=== PATIENT | male | born 1955 | race Caucasian/White ===

== ENCOUNTER 2016-10-01 17:13 | Inpatient (IN) | payer MEDICAID, MEDICARE ==
[2016-10-01 17:13] VITALS: BMI 49.4
--- NOTE | 2016-10-01 18:32 | EDPRACDOC ---
ED Seizure HPI - General Information Chief Complaint: Seizure Stated Complaint: SEIZURE Time Seen by Provider: 10/01/16 18:25 Mode Of Arrival: Car Home Medications: Home Medications Amitriptyline HCl [Elavil] 300 mg PO HS 11/12/12 Amlodipine [Norvasc] 5 mg PO DAILY 11/12/12 Pravastatin Sodium 40 mg PO DAILY 11/12/12 Clopidogrel Bisulfate [Plavix] 75 mg PO DAILY 09/28/13 Calcium Carb/Mag Ox/Zinc Sulf [Jumjkbg-Ktummpiyg-Ssll Tablet] 1 tab PO DAILY 07/22 Fluticasone/Vilanterol [Breo Ellipta 200-25 Mcg INH] 1 each INH BID 02/15/16 Isosorbide Mononitrate [Isosorbide Mononitrate ER] 30 mg PO DAILY 02/15/16 Metformin HCl [Metformin HCl ER] 500 mg PO QHS 02/15/16 Ranolazine [Ranexa] 500 mg PO BID 02/15/16 Cephalexin 500 mg PO .BID X 7D 10/01/16 CloNIDine (Antihypertensive) [Catapres] 0.3 mg PO BID 10/01/16 Glimepiride [Amaryl] 2 mg PO DAILY 10/01/16 Nitroglycerin Sublingual Tab [NTG (NitroStat Sublingual Tab)] 0.4 mg SL Q5MX3 PRN 10/01/16 Potassium Chloride [Klor-Con M10] 10 meq PO DAILY 10/01/16 Allergies/Adverse Reactions: Allergies Allergy/AdvReac Type Severity Reaction Status Date / Time No Known Allergies Allergy Verified 10/01/16 17:15 - History of Present Illness Onset: EKG TECH HPI: SEIZURE, 1530. LASTED ABOUT 20 MINUTES. WITNESSED BY PT'S OLDER BROTHER. PT JUST HAD MEDS CHANGED TODAY. H/O FALL OUT OF BED THE OTHER DAY. LIVES BY HIMSELF, BROTHER LIVES CLOSE. PT HAS BEEN TAKING HIS MEDS. BROTHER REPORTS PT WAS CALLED BY OFFICE BECAUSE HIS RENAL FUNCTION WAS DIMINISHED. TOLD TO STOP LISINOPRIL AND 3 OTHER MEDS. ED Past Medical History - History Reviewed Yes Nurses notes reviewed and agree except as marked - Patient Medical History Neurological History: Reports: Cerebrovascular Accident, Seizures Cardiac History: Reports: Coronary Artery Disease, Hypertension, Cardiac Catheterization, Hypercholesterolemia Respiratory History: Reports: Asthma GI/ History: Reports: Kidney Stones Psychological History: Reports: Depression Systemic History: Reports: Diabetes. Denies: Cancer Surgical History: Reports: Cardiac Catheterization - Social Medical History Smoking Status: Never smoker EDM Review of Systems - Review of Systems ROS Negative Except as Marked: Yes All systems reviewed and were negative except as marked Constitutional: No Symptoms Reported Eyes: No Symptoms Reported Throat: No Symptoms Reported Respiratory: No Symptoms Reported Cardiovascular: No Symptoms Reported - Physical Exam Constitutional: Alert (Awake), No apparent distress Oriented to: Time, Person, Place Last recorded Vital Signs: Last Vital Signs Temp 98.4 F 10/01/16 17:15 Pulse 80 10/01/16 17:15 Resp 18 10/01/16 17:15 BP 211/116 H 10/01/16 17:15 Pulse Ox 94 10/01/16 17:15 Oxygen Pulse Oxygen Saturation 94 O2 Device Room Air Oxygen Flow Rate Fraction of Inspired Oxygen ( FIO2) - HEENT Head: Normal ( normocephalic) Eye Exam: Normal (PERRL, EOMI, Sclera white) Oropharynx: Membranes Dry Nose: No Symptoms Reported (septum midline) Neck: Normal (FROM, trachea at midline) - Respiratory/Cardiovascular Respiratory: Normal - CTA (BBS clear to auscultation without adventitious sounds ) Cardiovascular: Normal (RRR without murmur, gallop or rub) - GI Auscultation: Normal (NABS) Palpation: Normal (Soft,No rebound or guarding, non distended) Tenderness: Non tender Plaza's Sign: Negative - Musculoskeletal Back: Normal (Non-Tender) Extremities: Normal (Normal tone, Pulses 2+ No cyanosis or edema, FROM) - Integumentary Skin: Normal, Warm, Dry, Other (B/L SKIN SUPERFICIAL ULCERATIONS.) Lymphatics: Normal (no adenopathy) - Neurologic Memory Impaired: Normal Motor Function: Normal (Normal tone, Pulses 2+ No cyanosis or edema, FROM) Cranial Nerve: Normal (CN II-X11 intact sensation, strength 5/5) Cerebellar: Normal Mood Description: Normal Perception: Normal - Results 10/01/16 18:48 10/01/16 18:48 - EKG EKG #1 EKG Time: 18:43 -: Yes EKG interpreted by me Rate: bpm: 61 [place]: Normal Rhythm: NSR ST: Normal Comments: NORMAL EKG - Additional Information . - Departure Yes I personally saw and evaluated the patient. Disposition: Admit IP To This Hospital Condition: Stable Final Diagnosis: Seizure, Dehydration, Hypertensive urgency, malignant Acute renal failure Qualifiers: Acute renal failure type: unspecified Qualified Code(s): N17.9 - Acute kidney failure, unspecified Instructions: Chronic Hypertension (ED) Prescriptions: No Action Amitriptyline HCl [Elavil] 300 mg PO HS Pravastatin Sodium 40 mg PO DAILY Amlodipine [Norvasc] 5 mg PO DAILY Clopidogrel Bisulfate [Plavix] 75 mg PO DAILY Metformin HCl [Metformin HCl ER] 500 mg PO QHS Isosorbide Mononitrate [Isosorbide Mononitrate ER] 30 mg PO DAILY Calcium Carb/Mag Ox/Zinc Sulf [Ptnvnor-Rdqmnqpkx-Ytdv Tablet] 1 tab PO DAILY Ranolazine [Ranexa] 500 mg PO BID Fluticasone/Vilanterol [Breo Ellipta 200-25 Mcg INH] 1 each INH BID Potassium Chloride [Klor-Con M10] 10 meq PO DAILY CloNIDine (Antihypertensive) [Catapres] 0.3 mg PO BID Glimepiride [Amaryl] 2 mg PO DAILY Cephalexin 500 mg PO .BID X 7D Nitroglycerin Sublingual Tab [NTG (NitroStat Sublingual Tab)] 0.4 mg SL Q5MX3 PRN PRN Reason: Chest Pain Or Discomfort Decision to Admit Time: 22:11 Decision to admit date: 10/01/16 Decision to admit: from ED - Physician Consulted Hospitalist Time Called: 22:11 Provider Called: Kalpesh Poole Time Assistant Corporate Controller Returned Call: 22:11
[2016-10-01 19:05] LABS: AUTOMATED BASOPHIL 0.4 % (0-2); AUTOMATED EOSINOPHIL 2.1 % (0-5); AUTOMATED LYMPH 14.5 % (17-44); AUTOMATED MONOCYTE 7.2 % (3-10); AUTOMATED NEUTROPHIL 75.8 % (45-76); MPV 7.7 fL (7.4-10.4)
[2016-10-01 19:22] LABS: BLOOD UREA NITROGEN 46 MG/DL (9-20); CALC CORRECTED 8.7 MG/DL (8.4-10.2); CALCIUM 8.5 MG/DL (8.4-10.2); CALCULATED OSMOLALITY 290 MOs/Kg (270-290); CHLORIDE 104 mEq/L (98-107); GLUCOSE 118 MG/DL (70-99); SODIUM LEVEL 144 mEq/L (137-146); TOTAL PROTEIN 6.9 G/DL (6.3-8.2)
[2016-10-01 20:03] LABS: LEUKOCYTES/URINE NEG (NEGATIVE); NITRITE/URINE NEG (NEGATIVE); URINE OCCULT BLOOD NEG (NEG/TRACE); WBC/URINE 0-2 (0-2)
[2016-10-01] MEDS ORDERED: NS 1,000 ML IV ONE ×2 (20:09→22:23)
--- NOTE | 2016-10-01 21:19 | DIRPT ---
CLINICAL DATA: Seizure today. Initial encounter. EXAM: CT HEAD WITHOUT CONTRAST TECHNIQUE: Contiguous axial images were obtained from the base of the skull through the vertex without intravenous contrast. COMPARISON: Head CT scan 09/28/2013. FINDINGS: There is some chronic microvascular change. No evidence of acute intracranial abnormality including hemorrhage, infarct, mass lesion, mass effect, midline shift or abnormal extra axial fluid is seen. No hydrocephalus or pneumocephalus. The calvarium is intact. IMPRESSION: No acute abnormality. Mild chronic microvascular ischemic change. Electronically Signed By: Adal Childs M.D. On: 10/01/2016 21:17
[2016-10-01] MEDS ORDERED: ACETAMINOPHEN 325 MG SUPP PR PRN ×2 (21:27→23:39)
[2016-10-01] MEDS ORDERED: TUSSIONEX 5 ML ORAL SYRINGE PO PRN ×2 (21:27→23:41)
[2016-10-01] MEDS ORDERED: ACETAMINOPHEN 325 MG/TAB TABLET PO PRN ×2 (21:27→23:39)
[2016-10-01] MEDS ORDERED: BENZONATATE 100 MG PERLES PO PRN ×2 (21:27→23:39)
--- NOTE | 2016-10-01 21:34 | DIRPT ---
CLINICAL DATA: Acute renal failure. EXAM: RENAL / URINARY TRACT ULTRASOUND COMPLETE COMPARISON: None. FINDINGS: Right Kidney: Length: 12.6 cm. Echogenicity within normal limits. Mild right hydronephrosis is noted. No mass is seen. Left Kidney: Length: 13.1 cm. Echogenicity within normal limits. Mild left hydronephrosis is noted. No mass is seen. Bladder: Appears normal for degree of bladder distention. IMPRESSION: Mild bilateral hydronephrosis. Electronically Signed By: Jerald Horn Jr, M.D. On: 10/01/2016 21:31
[2016-10-01] MEDS ORDERED: PROMETHAZINE 25 MG/ML VIAL IV PRN ×3 (22:17→23:40)
[2016-10-01] MEDS ORDERED: BISACODYL 10 MG SUPP PR PRN ×3 (22:17→23:39)
[2016-10-01] MEDS ORDERED: SENNA CONCENTRATE TAB PO PRN ×2 (22:17→23:40)
[2016-10-01] MEDS ORDERED: ONDANSETRON HCL 4 MG/2 ML VIAL IV PRN ×2 (22:17→23:40)
[2016-10-01] MEDS ORDERED: hydrALAZINE 20 MG/ML VIAL IV ONE (22:22)
--- NOTE | 2016-10-01 22:23 | HISTPHYS ---
- Chief Complaint Seizure witnessed by brother who brought him end and found to have acute renal failure. - History of Present Illness Patient is an interesting 60-year-old white male who lives alone and was in his brothers truck this afternoon when he had a seizure lasting 3-5 minutes. His brother tells me he has had seizures since 1991. He was in Dr. Gould office today and was told to stop his Lasix and lisinopril due to an elevation in his creatinine. Upon arrival emergency room after the seizure he was found have an extremely elevated blood pressure in the 230s systolicly. Also here he was noted to have a creatinine 4.1 which was last drawn at [facility] May 2016 and found to be 1.3. As far as a seizure goes the last 1 he had was about a year ago. I was called by Dr. Taylor to evaluate him in given these multiple issues I decided to stick him in the hospital to better control as blood pressure and monitor his renal function. He also has a history coronary artery disease status post stenting and sees Dr. Sousa for this. Ten years ago he had a stroke affecting his right side but strength has returned and issues a bound with his hypertension. Diabetes mellitus also plagues him. - Medical History Cardiac History: Reports: Coronary Artery Disease, Hypertension, Heart Attack ( Status post stenting), Cardiac Catheterization, Hypercholesterolemia Respiratory History: Reports: Asthma GI/ History: Reports: Kidney Stones Musculoskeletal History: Reports: No Significant History Systemic History: Reports: Diabetes. Denies: Cancer Neurological History: Reports: Cerebrovascular Accident, Seizures Psychological History: Reports: Depression - Surgical History Reports: Cardiac Catheterization (Status post coronary artery) - Medictions/Allergies Allergies No Known Allergies Allergy (Verified 10/01/16 17:15) Current Medication List: Reviewed Home Medications Amitriptyline HCl [Elavil] 300 mg PO HS 11/12/12 Amlodipine [Norvasc] 5 mg PO DAILY 11/12/12 Pravastatin Sodium 40 mg PO DAILY 11/12/12 Clopidogrel Bisulfate [Plavix] 75 mg PO DAILY 09/28/13 Calcium Carb/Mag Ox/Zinc Sulf [Nhynpld-Iodwebqcs-Rtko Tablet] 1 tab PO DAILY 07/22 Fluticasone/Vilanterol [Breo Ellipta 200-25 Mcg INH] 1 each INH BID 02/15/16 Isosorbide Mononitrate [Isosorbide Mononitrate ER] 30 mg PO DAILY 02/15/16 Metformin HCl [Metformin HCl ER] 500 mg PO QHS 02/15/16 Ranolazine [Ranexa] 500 mg PO BID 02/15/16 Cephalexin 500 mg PO .BID X 7D 10/01/16 CloNIDine (Antihypertensive) [Catapres] 0.3 mg PO BID 10/01/16 Glimepiride [Amaryl] 2 mg PO DAILY 10/01/16 Nitroglycerin Sublingual Tab [NTG (NitroStat Sublingual Tab)] 0.4 mg SL Q5MX3 PRN 10/01/16 Potassium Chloride [Klor-Con M10] 10 meq PO DAILY 10/01/16 - Family History Reports: Hypertension (Both parents), Stroke (Mother), Cardiac Disorders (Follow ), Renal Disease (Father) - Social History Travel Outside of [place] in the Last 3 Months?: No Lives: Alone Smoking Status: Never smoker Social History: Denies: Alcohol Use, Substance Use Disorder - Review of Systems Constitutional: No Symptoms Reported (No Fever, chills, wt loss/gain, diaphoresis,fatigue/malaise.) Eyes: No Symptoms Reported (No blurry vision, visual changes, eye pain, or eye redness.) Ears: No Symptoms Reported (No ear pain or discharge) Nose: No Symptoms Reported (No nasal discharge/congestion or bleeding) Mouth: No Symptoms Reported (No oropharyngeal lesions or erythema) Throat/Neck: No Symptoms Reported (No throat pain or swelling.No oropharyngeal lesions or erythema.) Respiratory: No Symptoms Reported (No cough, wheezing, or shortness of breath.) Cardiovascular: No Symptoms Reported (No chest pain or palpitations.) Gastrointestinal: No Symptoms Reported (No abdominal pain, nausea, vomiting, diarrhea, constipation, or bloody stool.) Genitourinary: No Symptoms Reported (No dysuria or hematuria.) Neurological: Seizure Musculoskeletal:: No Symptoms Reported Integumentary: No Symptoms Reported (no rashes or lesions) Allergic/Immunologic: No Symptoms Reported (no rashes or lesions) Hematologic: No Symptoms Reported (No chronic anemia, bleeding, or easy bruising.), Other (Lymphatics- no lymph node swelling or pain.) Endocrine: Diabetes Psychiatric: No Symptoms Reported (Fully oriented, with normal and appropriate affect.) - Physical Exam Vital Signs: Initial Vitals Temperature 98.4 F 10/01/16 17:15 Pulse Rate 80 10/01/16 17:15 Respiratory Rate 18 10/01/16 17:15 Blood Pressure 211/116 H 10/01/16 17:15 Pulse Oxygen Saturation 94 10/01/16 17:15 Constitutional: Alert (Awake, Fully oriented. Normal and appropriate affect.Well appearing. Well nourished.), No apparent distress Oriented to: Time, Person, Place - HEENT Head: Normal (normocephalic, atraumatic.), Other (No cervical lymphadenopathy. No supraclavicular lymphadenopathy. Neck: No palpable mass, supple , trachea midline.) Eye: Normal (pupils equal, reactive to light, and round; EOMI, Sclera white) Oropharynx: Normal (Pharynx: Moist without exudate,Gums-no swelling, No oropharyngeal lesions or erythema, Mucous membranes are dry.) Tympanic Membrane: Normal (no discharge) ENT EAC: Normal (No oropharyngeal lesions or erythema. Mucous membranes are dry. ) TMJ: Normal Nose: No Symptoms Reported (septum midline, Nares patent, without discharge or bleeding.) Respiratory: Normal - CTA (Clear to auscultation bilaterally. No wheezing, rales , rhonchi. Chest wall movements are symmetric. No use of accessory muscles to breathe.) Cardiovascular: Normal (RRR , Normal S1, S2. No murmurs, rubs, or gallops. PMI non-displaced. Carotids: no carotid bruits. No bradycardia or tachycardia. DP pulses 2+ bilaterally.) - GI Auscultation: Normal (normal active sounds) Palpation: Normal (Soft,non distended,nontender. No hepatosplenomegaly.) Tenderness: Non tender (No rebound or guarding) Plaza's Sign: Negative - Musculoskeletal Back: Normal (Non-Tender) Extremities: Normal (Normal tone, DP pulses 2+ bilaterally, No cyanosis or edema bilaterally, FROM bilaterally.) Spine: non-tender - Integumentary Skin: Normal (Clean, dry, and intact. No rashes. No lesions.) Lymphatics: Normal (No cervical lymphadenopathy. No supraclavicular lymphadenopathy.) - Neurologic Memory Impaired: Normal Motor Function: Normal (Motor 5/5 throughout.Normal tone, Pulses 2+ No cyanosis or edema, FROM) Cranial Nerve: Normal (CN II-XII intact sensation, strength 5/5) Cerebellar: Normal (Babinski: toes downgoing bilaterally. Intact Finger to nose. Sensory grossly intact to light touch. Intact rapid alternating movements bilaterally. No pronator drift.) Mood Description: Normal (Fully oriented. Normal and appropriate affect.) Thought: Coherent Perception: Normal (Normal and appropriate affect.) - Focused CV Perfusion Exam Vital Signs: Last Vital Signs Temp 98.4 F 10/01/16 17:15 Pulse 59 L 10/01/16 22:00 Resp 20 10/01/16 22:00 BP 221/108 H 10/01/16 22:00 Pulse Ox 96 10/01/16 22:00 - Lab Results 10/01/16 18:48 10/01/16 18:48 Laboratory Results - last 24 hr 10/01/16 10/01/16 10/01/16 18:48 18:48 19:19 WBC 14.8 H RBC 3.64 L Hgb 10.7 L Hct 32.1 L MCV 88 MCH 29.4 MCHC 33.4 RDW 13.6 Plt Count 255 MPV 7.7 Neut % (Auto) 75.8 Lymph % (Auto) 14.5 L Stevens % (Auto) 7.2 Eos % (Auto) 2.1 Baso % (Auto) 0.4 Absolute Neuts (auto) 11.10 H Absolute Lymphs (auto) 2.07 Sodium 144 Potassium 3.3 L Chloride 104 Carbon Dioxide 29 Anion Gap 14 BUN 46 H Creatinine 4.10 H Estimated GFR (MDRD) 15 L Glucose 118 H Calculated Osmolality 290 Calcium 8.5 Corrected Calcium 8.7 Total Bilirubin 0.5 AST 24 ALT 31 Alkaline Phosphatase 85 Total Protein 6.9 Albumin 3.8 Urine Color Yellow Urine Clarity Clear Urine pH 6.0 Ur Specific [place] 1.010 Urine Protein Neg Urine Glucose (UA) Neg Urine Ketones Neg Urine Occult Blood Neg Urine Nitrite Neg Urine Bilirubin Neg Urine Urobilinogen <2.0 Ur Leukocyte Esterase Neg Urine RBC 2-5 H Urine WBC 0-2 Ur Epithelial Cells 1+ Urine Mucus Occ - Diagnostic Findings Renal ultrasound shows mild bilateral hydronephrosis. - Assessment (1) Coronary artery disease I25.10 - ATHSCL HEART DISEASE OF [place] CORONARY ARTERY W/O ANG PCTRS Acute Present on Admission: Yes Qualifiers: Coronary Disease-Associated Artery/Lesion type: [place] artery [place] vs. transplanted heart: [place] heart Associated angina: without angina Qualified Code(s): I25.10 - Atherosclerotic heart disease of [place] coronary artery without angina pectoris Continuation of previous medications will be necessary except for the lisinopril and Lasix. (2) Acute renal failure N17.9 - ACUTE KIDNEY FAILURE, UNSPECIFIED Acute Present on Admission: Yes Qualifiers: Acute renal failure type: with acute tubular necrosis Qualified Code(s): N17.0 - Acute kidney failure with tubular necrosis Concerned that dehydration is playing a role with and will see how it improves with rehydration. Also combination of loop diuretic and NOEMI-inhibitor is contributing to this as well. Patient's brother states that he was instructed to stop those four medications today including gabapentin and lisinopril metformin and Lasix. (3) Hypertensive urgency, malignant I16.0 - HYPERTENSIVE URGENCY Acute Present on Admission: Yes Reinstitution of Norvasc and Catapres is in order but will have to avoid angiotensin modulating drugs. P.r.n. hydralazine and labetalol are ordered. (4) Seizure R56.9 - UNSPECIFIED CONVULSIONS Acute Present on Admission: Yes Last seizure year ago before today's. Do not feel we need to adjust his medication this point time. (5) Non-insulin dependent type 2 diabetes mellitus E11.9 - TYPE 2 DIABETES MELLITUS WITHOUT COMPLICATIONS Chronic Present on Admission: Yes Sliding scale insulin therapy is ordered. Glycohemoglobin and microalbumin ordered. Case Care Discussed with: Patient, Family, Nursing Staff Critical Care: No Code: 61302
[2016-10-01] MEDS ORDERED: ENOXAPARIN 40 MG/0.4 ML PFS SQ SCH (22:30)
[2016-10-01] MEDS ORDERED: Vaccine Screening Complete SCH (23:00)
[2016-10-02] MEDS: ENOXAPARIN 40 MG/0.4 ML PFS SQ SCH ×2 (00:51→21:03)
[2016-10-02] MEDS ORDERED: hydrALAZINE 20 MG/ML VIAL IV PRN ×2 (02:45→03:00)
[2016-10-02] MEDS ORDERED: NITROGLYCERINE 0.4 MG TAB SL PRN (03:39)
[2016-10-02] MEDS ORDERED: DEXTROSE 25 GM/50 ML PFS IV PRN (03:51)
[2016-10-02] MEDS ORDERED: GLUCOSE (ORAL GEL) 15 GM TUBE PO PRN (03:51)
[2016-10-02] MEDS ORDERED: GLUCAGON 1 MG VIAL SQ PRN (03:51)
[2016-10-02] MEDS ORDERED: LABETALOL 20 MG/4 ML SYRINGE IV PRN (03:57)
[2016-10-02] MEDS: AMLODIPINE 10 MG TAB PO SCH ×2 (04:22→09:31)
[2016-10-02] MEDS: REGULAR INSULIN 100 UNITS/ML - 3 ML VIAL SQ SCH ×2 (06:06→17:21)
[2016-10-02] MEDS ORDERED: GLIMEPIRIDE 2 MG TAB PO SCH (07:00)
[2016-10-02] MEDS ORDERED: POTASSIUM CHLORIDE 20 MEQ TAB PO ONE (07:46)
[2016-10-02] MEDS: ALBUTEROL 0.083% 3 ML NEB NEB SCH ×3 (08:54→19:29)
[2016-10-02] MEDS: BUDESONIDE 0.5 MG NEB NEB SCH ×2 (08:57→19:33)
[2016-10-02] MEDS ORDERED: CALCIUM CARB PO SCH (09:00)
[2016-10-02] MEDS ORDERED: MAG OX PO SCH (09:00)
[2016-10-02] MEDS ORDERED: ZINC SULF PO SCH (09:00)
[2016-10-02] MEDS ORDERED: [UNRECOGNIZED DRUG - OTHER] INH SCH (09:00)
[2016-10-02] MEDS ORDERED: [UNRECOGNIZED DRUG - OTHER] PO SCH (09:00)
[2016-10-02] MEDS: CLOPIDOGREL 75 MG TAB PO SCH (09:31)
[2016-10-02] MEDS: PRAVASTATIN 40 MG TABLET PO SCH (09:31)
[2016-10-02] MEDS: RANOLAZINE 500 MG EXT RELEASE TAB PO SCH ×2 (09:32→21:04)
[2016-10-02] MEDS: ISOSORBIDE MONONITRATE 30 MG TAB PO SCH (09:33)
[2016-10-02] MEDS: POTASSIUM CHLORIDE 10 MEQ TABLET PO SCH (11:45)
--- NOTE | 2016-10-02 17:16 | GENMEDPROG ---
Subjective Note: Patient in chair responsive follows commands. Denies any headaches blurring or double vision. Reports no chest pain PND orthopnea. Denies and difficulties breathing cough or phlegm production. Notes Reviewed: Yes Events from last night noted and discussed with Clinical Staff Current Medication List: Reviewed Currently: Reports: RODRIGUEZ, Sputum, Constipation, Reflux Sx DVT Prophylaxis: Yes - Physical Examination Vital Signs and I&O: Last Vital Signs Temp 97.4 F L 10/02/16 13:45 Pulse 75 10/02/16 13:45 Resp 18 10/02/16 13:45 BP 171/89 10/02/16 13:45 Pulse Ox 94 10/02/16 13:45 Oxygen Pulse Oxygen Saturation 94 O2 Device Room Air Oxygen Flow Rate Fraction of Inspired Oxygen ( FIO2) Intake & Output 09/29/16 09/30/16 10/01/16 10/02/16 23:59 23:59 23:59 23:59 Intake Total 600 1812 Output Total 1425 Balance 600 387 Patient's weight 129.637 kg 130.907 kg General: Alert, Oriented x3, Cooperative, No acute distress HEENT: Normal, PERRLA, EOMI, Anicteric Sclera Neck: Non-tender, Normal inspection, Limited range of motion Lymphatics: Normal (No cervical lymphadenopathy. No supraclavicular lymphadenopathy.) Respiratory: Normal - CTA (Clear to auscultation bilaterally. No wheezing, rales , rhonchi. Chest wall movements are symmetric. No use of accessory muscles to breathe.), Diminished, Rhonchi Cardiovascular: Regular rate, Normal S1, Normal S2 GI: Normal bowel sounds, Soft, Non tender, No hepatospenomegaly, No masses, Obese Extremities/Musculoskeletal: Edema, Cyanosis, DJD Skin: Warm,Dry and Intact, No rashes, No significant lesion Neurological: Normal speech, Cranial nerves 3-12 NL Psych/Mental Status: Anxious Allergies NOEMI Inhibitors Adverse Reaction (Severe, Verified 10/01/16 22:24) See Comments Acute renal failure 10/01/16 18:48 10/01/16 18:48 Last Vital Signs Temp 97.4 F L 10/02/16 13:45 Pulse 75 10/02/16 13:45 Resp 18 10/02/16 13:45 BP 171/89 10/02/16 13:45 Pulse Ox 94 10/02/16 13:45 - Assessment (1) Acute renal failure Acute N17.9 - ACUTE KIDNEY FAILURE, UNSPECIFIED Qualifiers: Acute renal failure type: with acute tubular necrosis Qualified Code(s): N17.0 - Acute kidney failure with tubular necrosis Comment/Plan: Monitor daily BMP. Avoid any nephrotoxins. Continue IV hydration. (2) Hypertensive urgency, malignant Acute I16.0 - HYPERTENSIVE URGENCY Comment/Plan: Up titrate meds to keep SBP around 140. (3) Dehydration Acute E86.0 - DEHYDRATION (4) Coronary artery disease Acute I25.10 - ATHSCL HEART DISEASE OF [place] CORONARY ARTERY W/O ANG PCTRS Qualifiers: Coronary Disease-Associated Artery/Lesion type: [place] artery [place] vs. transplanted heart: [place] heart Associated angina: without angina Qualified Code(s): I25.10 - Atherosclerotic heart disease of [place] coronary artery without angina pectoris Comment/Plan: Stable on meds (5) Non-insulin dependent type 2 diabetes mellitus Chronic E11.9 - TYPE 2 DIABETES MELLITUS WITHOUT COMPLICATIONS Comment/Plan : Sliding scale insulin therapy is ordered. Glycohemoglobin and microalbumin ordered. (6) Anemia Acute D64.9 - ANEMIA, UNSPECIFIED Qualifiers: Anemia type: unspecified type Iron deficiency anemia type: I Vitamin B12 deficiency anemia type: V Folate deficiency anemia type: F Bone marrow failure anemia type: B Hemolytic anemia type: H Other causes of anemia: O Qualified Code(s): D64.9 - Anemia, unspecified Comment/Plan: Overall stable, monitor counts Case Care Discussed with: Patient, Nursing Staff, Towel Inspector Education/Counseling Given To: Patient Education/Counseling Given Regarding: Diagnosis, Treatment, Prognosis, Follow Up Total Time: 45 min . Critical Care: No Code: 79681 (12+)
[2016-10-02] MEDS: NS 1,000 ML IV SCH (17:19)
[2016-10-02] MEDS: AMITRIPTYLINE 50 MG TAB PO SCH (21:04)
[2016-10-02] MEDS: hydrALAZINE 20 MG/ML VIAL IV PRN (21:34)
[2016-10-03] MEDS: ALBUTEROL 0.083% 3 ML NEB NEB SCH ×3 (01:36→13:53)
[2016-10-03] MEDS: REGULAR INSULIN 100 UNITS/ML - 3 ML VIAL SQ SCH ×2 (05:58→16:39)
[2016-10-03] MEDS: NS 1,000 ML IV SCH ×3 (06:14→16:59)
[2016-10-03] MEDS: hydrALAZINE 20 MG/ML VIAL IV PRN (06:27)
[2016-10-03 07:03] LABS: BLOOD UREA NITROGEN 52 MG/DL (9-20); CALCIUM 8.8 MG/DL (8.4-10.2); CALCULATED OSMOLALITY 296 MOs/Kg (270-290); CHLORIDE 109 mEq/L (98-107); GLUCOSE 67 MG/DL (70-99); SODIUM LEVEL 148 mEq/L (137-146)
[2016-10-03] MEDS: ISOSORBIDE MONONITRATE 30 MG TAB PO SCH (07:44)
[2016-10-03] MEDS: PRAVASTATIN 40 MG TABLET PO SCH (07:45)
[2016-10-03] MEDS: CLOPIDOGREL 75 MG TAB PO SCH (07:45)
[2016-10-03] MEDS: AMLODIPINE 10 MG TAB PO SCH (07:45)
[2016-10-03] MEDS: RANOLAZINE 500 MG EXT RELEASE TAB PO SCH ×2 (07:45→20:39)
[2016-10-03] MEDS: BUDESONIDE 0.5 MG NEB NEB SCH ×2 (08:42→19:31)
[2016-10-03] MEDS: POTASSIUM CHLORIDE 10 MEQ TABLET PO SCH ×2 (12:41→14:03)
--- NOTE | 2016-10-03 15:38 | GENMEDPROG ---
Subjective Note: Patient in bed responsive follows commands. Denies and difficulties breathing PND orthopnea reports no palpitations syncope or near syncope. Tolerating diet. Notes Reviewed: Yes Events from last night noted and discussed with Clinical Staff Current Medication List: Reviewed Currently: Reports: RODRIGUEZ, Sputum, Constipation, Reflux Sx DVT Prophylaxis: Yes - Physical Examination Vital Signs and I&O: Last Vital Signs Temp 98.1 F 10/03/16 13:57 Pulse 81 10/03/16 13:57 Resp 20 10/03/16 13:57 BP 151/76 10/03/16 13:57 Pulse Ox 96 10/03/16 13:57 Oxygen Pulse Oxygen Saturation 96 O2 Device Room Air Oxygen Flow Rate Fraction of Inspired Oxygen ( FIO2) Intake & Output 09/30/16 10/01/16 10/02/16 10/03/16 23:59 23:59 23:59 23:59 Intake Total 600 2132 600 Output Total 1625 1500 Balance 600 507 -900 Patient's weight 129.637 kg 130.907 kg 131.57 kg General: Alert, Oriented x3, Cooperative, No acute distress HEENT: Normal, PERRLA, EOMI, Anicteric Sclera Neck: Non-tender, Normal inspection, Limited range of motion Lymphatics: Normal (No cervical lymphadenopathy. No supraclavicular lymphadenopathy.) Respiratory: Normal - CTA (Clear to auscultation bilaterally. No wheezing, rales , rhonchi. Chest wall movements are symmetric. No use of accessory muscles to breathe.), Diminished, Rhonchi Cardiovascular: Regular rate, Normal S1, Normal S2 GI: Normal bowel sounds, Soft, Non tender, No hepatospenomegaly, No masses, Obese Extremities/Musculoskeletal: Edema, Cyanosis, DJD Skin: Warm,Dry and Intact, No rashes, No significant lesion Neurological: Normal speech, Cranial nerves 3-12 NL Psych/Mental Status: Anxious Lab/DI/Studies Reviewed: 10/03/16 05:53 10/03/16 05:53 Abnormal Lab Results 10/02/16 10/03/16 10/03/16 21:18 05:38 05:53 Hgb Hct Sodium 148 H Potassium 3.3 L Chloride 109 H Anion Gap 17 H BUN 52 H Creatinine 5.20 H Estimated GFR (MDRD) 11 L Glucose 67 L POC Capillary Glucose 108 H 65 L Calculated Osmolality 296 H 10/03/16 10/03/16 10/03/16 05:53 06:21 11:14 Hgb 11.7 L Hct 35.3 L Sodium Potassium Chloride Anion Gap BUN Creatinine Estimated GFR (MDRD) Glucose POC Capillary Glucose 105 H 125 H Calculated Osmolality - Assessment (1) Acute renal failure Acute N17.9 - ACUTE KIDNEY FAILURE, UNSPECIFIED Qualifiers: Acute renal failure type: with acute tubular necrosis Qualified Code(s): N17.0 - Acute kidney failure with tubular necrosis Comment/Plan: Monitor daily BMP. Avoid any nephrotoxins. Continue IV hydration. Kidney function worse today. Case discussed with Dr. Caro. Further workup will be undertaken, continue current care monitor kidney function (2) Hypertensive urgency, malignant Acute I16.0 - HYPERTENSIVE URGENCY Comment/Plan: Up titrate meds to keep SBP around 140. (3) Dehydration Acute E86.0 - DEHYDRATION Comment/Plan: Continue IV normal saline at the rate of 100 cc an hour (4) Coronary artery disease Acute I25.10 - ATHSCL HEART DISEASE OF [place] CORONARY ARTERY W/O ANG PCTRS Qualifiers: Coronary Disease-Associated Artery/Lesion type: [place] artery [place] vs. transplanted heart: [place] heart Associated angina: without angina Qualified Code(s): I25.10 - Atherosclerotic heart disease of [place] coronary artery without angina pectoris Comment/Plan: Stable on meds (5) Non-insulin dependent type 2 diabetes mellitus Chronic E11.9 - TYPE 2 DIABETES MELLITUS WITHOUT COMPLICATIONS Comment/Plan : Sliding scale insulin therapy is ordered. Glycohemoglobin and microalbumin ordered. Off oral agents due to renal failure (6) Anemia Acute D64.9 - ANEMIA, UNSPECIFIED Qualifiers: Anemia type: unspecified type Iron deficiency anemia type: I Vitamin B12 deficiency anemia type: V Folate deficiency anemia type: F Bone marrow failure anemia type: B Hemolytic anemia type: H Other causes of anemia: O Qualified Code(s): D64.9 - Anemia, unspecified Comment/Plan: Overall stable, monitor counts (7) Hypokalemia Acute E87.6 - HYPOKALEMIA Comment/Plan: Replace and monitor Case Care Discussed with: Patient, Consultants, Nursing Staff Education/Counseling Given To: Patient Education/Counseling Given Regarding: Diagnosis, Treatment, Prognosis, Follow Up Total Time: 45 min . Critical Care: No Code: 33877 (12+)
[2016-10-03] MEDS ORDERED: ALBUTEROL 0.083% 3 ML NEB NEB PRN (16:33)
[2016-10-03] MEDS: ENOXAPARIN 40 MG/0.4 ML PFS SQ SCH (17:01)
[2016-10-03] MEDS: AMITRIPTYLINE 50 MG TAB PO SCH (20:38)
[2016-10-04] MEDS: NS 1,000 ML IV SCH ×3 (03:31→22:54)
[2016-10-04] MEDS: ISOSORBIDE MONONITRATE 60 MG TAB PO SCH (05:07)
[2016-10-04 06:58] LABS: BLOOD UREA NITROGEN 47 MG/DL (9-20); CALCIUM 8.8 MG/DL (8.4-10.2); CALCULATED OSMOLALITY 301 MOs/Kg (270-290); CHLORIDE 113 mEq/L (98-107); GLUCOSE 81 MG/DL (70-99); SODIUM LEVEL 151 mEq/L (137-146)
[2016-10-04] MEDS: REGULAR INSULIN 100 UNITS/ML - 3 ML VIAL SQ SCH ×2 (07:09→18:15)
[2016-10-04] MEDS: PRAVASTATIN 40 MG TABLET PO SCH (08:28)
[2016-10-04] MEDS: AMLODIPINE 10 MG TAB PO SCH (08:28)
[2016-10-04] MEDS: CLOPIDOGREL 75 MG TAB PO SCH (08:28)
[2016-10-04] MEDS: RANOLAZINE 500 MG EXT RELEASE TAB PO SCH ×2 (08:29→20:56)
[2016-10-04] MEDS: BUDESONIDE 0.5 MG NEB NEB SCH ×2 (08:50→19:26)
[2016-10-04] MEDS: POTASSIUM CHLORIDE 10 MEQ TABLET PO SCH (11:25)
--- NOTE | 2016-10-04 16:11 | GENMEDPROG ---
Subjective Note: Patient in bed responsive follows commands. Denies and difficulties breathing cough phlegm production, reports no PND or orthopnea.. Lane in place draining clear urine. P.o. intake fair no hypoglycemia Notes Reviewed: Yes Events from last night noted and discussed with Clinical Staff Current Medication List: Reviewed Currently: Reports: RODRIGUEZ, Sputum, Constipation, Reflux Sx DVT Prophylaxis: Yes - Physical Examination Vital Signs and I&O: Last Vital Signs Temp 98.8 F 10/04/16 13:51 Pulse 85 10/04/16 13:51 Resp 20 10/04/16 13:51 BP 142/72 10/04/16 13:51 Pulse Ox 95 10/04/16 13:51 Oxygen Pulse Oxygen Saturation 95 O2 Device Room Air Oxygen Flow Rate Fraction of Inspired Oxygen ( FIO2) Intake & Output 10/01/16 10/02/16 10/03/16 10/04/16 23:59 23:59 23:59 23:59 Intake Total 600 2132 2166 1743 Output Total 1625 4150 3800 Balance 600 Patient's weight 129.637 kg 130.907 kg 131.57 kg 131.712 kg General: Alert, Oriented x3, Cooperative, No acute distress HEENT: Normal, PERRLA, EOMI, Anicteric Sclera Neck: Non-tender, Normal inspection, Limited range of motion Lymphatics: Normal (No cervical lymphadenopathy. No supraclavicular lymphadenopathy.) Respiratory: Normal - CTA (Clear to auscultation bilaterally. No wheezing, rales , rhonchi. Chest wall movements are symmetric. No use of accessory muscles to breathe.), Diminished, Rhonchi Cardiovascular: Regular rate, Normal S1, Normal S2 GI: Normal bowel sounds, Soft, Non tender, No hepatospenomegaly, No masses, Obese Extremities/Musculoskeletal: Edema, Cyanosis, DJD Skin: Warm,Dry and Intact, No rashes, No significant lesion Neurological: Normal speech, Cranial nerves 3-12 NL Psych/Mental Status: Anxious Lab/DI/Studies Reviewed: Last Vital Signs Temp 98.8 F 10/04/16 13:51 Pulse 85 10/04/16 13:51 Resp 20 10/04/16 13:51 BP 142/72 10/04/16 13:51 Pulse Ox 95 10/04/16 13:51 10/03/16 05:53 10/04/16 05:40 - Assessment (1) Acute renal failure Acute N17.9 - ACUTE KIDNEY FAILURE, UNSPECIFIED Qualifiers: Acute renal failure type: with acute tubular necrosis Qualified Code(s): N17.0 - Acute kidney failure with tubular necrosis Comment/Plan: Continue monitoring with daily BMP. Avoid any nephrotoxins. Consult Nephrology on Wednesday morning (2) Hypertensive urgency, malignant Acute I16.0 - HYPERTENSIVE URGENCY Comment/Plan: BP still fluctuates but overall under much better control. Continue multiple agents (3) Dehydration Acute E86.0 - DEHYDRATION Comment/Plan: Continue IV normal saline at the rate of 100 cc an hour (4) Coronary artery disease Acute I25.10 - ATHSCL HEART DISEASE OF [place] CORONARY ARTERY W/O ANG PCTRS Qualifiers: Coronary Disease-Associated Artery/Lesion type: [place] artery [place] vs. transplanted heart: [place] heart Associated angina: without angina Qualified Code(s): I25.10 - Atherosclerotic heart disease of [place] coronary artery without angina pectoris Comment/Plan: Stable on meds (5) Non-insulin dependent type 2 diabetes mellitus Chronic E11.9 - TYPE 2 DIABETES MELLITUS WITHOUT COMPLICATIONS Comment/Plan : Sliding scale insulin therapy is ordered. Glycohemoglobin and microalbumin ordered. Off oral agents due to renal failure (6) Anemia Acute D64.9 - ANEMIA, UNSPECIFIED Qualifiers: Anemia type: unspecified type Iron deficiency anemia type: I Vitamin B12 deficiency anemia type: V Folate deficiency anemia type: F Bone marrow failure anemia type: B Hemolytic anemia type: H Other causes of anemia: O Qualified Code(s): D64.9 - Anemia, unspecified Comment/Plan: Overall stable, monitor counts (7) Hypokalemia Acute E87.6 - HYPOKALEMIA Comment/Plan: Replace and monitor Case Care Discussed with: Patient, Consultants, Nursing Staff, Electrical Project Engineer Education/Counseling Given To: Patient Education/Counseling Given Regarding: Diagnosis, Treatment, Prognosis, Follow Up Total Time: 45 min . Critical Care: No Code: 59038 (12+)
[2016-10-04] MEDS: MAGNESIUM OXIDE 400 MG TAB PO SCH (17:39)
[2016-10-04] MEDS: ENOXAPARIN 40 MG/0.4 ML PFS SQ SCH (17:40)
[2016-10-04] MEDS: AMITRIPTYLINE 50 MG TAB PO SCH (20:56)
[2016-10-05] MEDS: ISOSORBIDE MONONITRATE 60 MG TAB PO SCH (05:10)
[2016-10-05] MEDS: REGULAR INSULIN 100 UNITS/ML - 3 ML VIAL SQ SCH ×2 (05:11→16:55)
[2016-10-05 07:54] LABS: BLOOD UREA NITROGEN 36 MG/DL (9-20); CALCIUM 8.4 MG/DL (8.4-10.2); CALCULATED OSMOLALITY 299 MOs/Kg (270-290); CHLORIDE 118 mEq/L (98-107); GLUCOSE 78 MG/DL (70-99); SODIUM LEVEL 152 mEq/L (137-146)
[2016-10-05] MEDS: CLOPIDOGREL 75 MG TAB PO SCH (08:17)
[2016-10-05] MEDS: RANOLAZINE 500 MG EXT RELEASE TAB PO SCH ×2 (08:17→19:53)
[2016-10-05] MEDS: AMLODIPINE 10 MG TAB PO SCH (08:17)
[2016-10-05] MEDS: PRAVASTATIN 40 MG TABLET PO SCH (08:17)
[2016-10-05] MEDS: NS 1,000 ML IV SCH ×2 (08:20→19:55)
[2016-10-05] MEDS: BUDESONIDE 0.5 MG NEB NEB SCH ×2 (08:28→19:47)
[2016-10-05] MEDS: MAGNESIUM OXIDE 400 MG TAB PO SCH ×2 (11:34→16:59)
[2016-10-05] MEDS: POTASSIUM CHLORIDE 20 MEQ TAB PO SCH (11:34)
--- NOTE | 2016-10-05 12:48 | GENMEDPROG ---
Currently: Reports: RODRIGUEZ, Sputum, Constipation, Reflux Sx DVT Prophylaxis: Yes - Physical Examination Vital Signs and I&O: Last Vital Signs Temp 99 F 10/05/16 05:39 Pulse 88 10/05/16 10:39 Resp 20 10/05/16 10:39 BP 137/81 10/05/16 10:39 Pulse Ox 94 10/05/16 10:39 Oxygen Pulse Oxygen Saturation 94 O2 Device Room Air Oxygen Flow Rate Fraction of Inspired Oxygen ( FIO2) Intake & Output 10/02/16 10/03/16 10/04/16 10/05/16 23:59 23:59 23:59 23:59 Intake Total 2132 2166 3217 1346 Output Total 1625 4150 5200 4900 Balance 267 1982 -1982 -9363 Patient's weight 130.907 kg 131.57 kg 131.712 kg 129.756 kg General: Alert, Oriented x3, Cooperative, No acute distress HEENT: Normal, PERRLA, EOMI, Anicteric Sclera Neck: Non-tender, Normal inspection, Limited range of motion Lymphatics: Normal (No cervical lymphadenopathy. No supraclavicular lymphadenopathy.) Respiratory: Normal - CTA (Clear to auscultation bilaterally. No wheezing, rales , rhonchi. Chest wall movements are symmetric. No use of accessory muscles to breathe.), Diminished, Rhonchi Cardiovascular: Regular rate, Normal S1, Normal S2 GI: Normal bowel sounds, Soft, Non tender, No hepatospenomegaly, No masses, Obese Extremities/Musculoskeletal: Edema, Cyanosis, DJD Skin: Warm,Dry and Intact, No rashes, No significant lesion Neurological: Normal speech, Cranial nerves 3-12 NL Psych/Mental Status: Anxious Lab/DI/Studies Reviewed: Laboratory Tests 10/05/16 10/05/16 10/05/16 05:10 06:52 16:55 Sodium 152 H Potassium 3.8 Chloride 118 H Carbon Dioxide 20 L Anion Gap 18 H BUN 36 H Creatinine 3.20 H Estimated GFR (MDRD) 20 L Glucose 78 POC Capillary Glucose 87 127 H Calculated Osmolality 299 H Calcium 8.4 Magnesium 1.40 L - Assessment (1) Acute renal failure Acute N17.9 - ACUTE KIDNEY FAILURE, UNSPECIFIED Qualifiers: Acute renal failure type: with acute tubular necrosis Qualified Code(s): N17.0 - Acute kidney failure with tubular necrosis Comment/Plan: Continue monitoring with daily BMP. Avoid any nephrotoxins. Consult Urology on Wednesday morning (2) Urinary retention due to benign prostatic hyperplasia Acute N28.89 - OTHER SPECIFIED DISORDERS OF KIDNEY AND URETER; R33.8 - OTHER RETENTION OF URINE Comment/Plan: Continue zarate catheter; Patient needs Urology consult to see if procedure necessary to prevent recurrent obstruction and hydronephrosis. (3) Hypertensive urgency, malignant Acute I16.0 - HYPERTENSIVE URGENCY Comment/Plan: BP still fluctuates but overall under much better control. Continue multiple agents (4) Hypomagnesemia Acute E83.42 - HYPOMAGNESEMIA Comment/Plan: replace losses and recheck level (5) Coronary artery disease Acute I25.10 - ATHSCL HEART DISEASE OF [place] CORONARY ARTERY W/O ANG PCTRS Qualifiers: Coronary Disease-Associated Artery/Lesion type: [place] artery [place] vs. transplanted heart: [place] heart Associated angina: without angina Qualified Code(s): I25.10 - Atherosclerotic heart disease of [place] coronary artery without angina pectoris Comment/Plan: Stable on meds (6) Non-insulin dependent type 2 diabetes mellitus Chronic E11.9 - TYPE 2 DIABETES MELLITUS WITHOUT COMPLICATIONS Comment/Plan : Sliding scale insulin therapy is ordered. Glycohemoglobin and microalbumin ordered. Off oral agents due to renal failure Case Care Discussed with: Patient, Consultants, Nursing Staff Education/Counseling Given To: Patient Education/Counseling Given Regarding: Diagnosis, Treatment, Prognosis
[2016-10-05 16:38] LABS: A1 GLOBULIN 0.2 g/dL (0.0-0.4); A2 GLOBULIN 0.8 g/dL (0.4-1.0); ALBUMIN (PE) 3.2 g/dL (2.9-4.4); TOTAL PROTEIN (PE) 6.1 g/dL (6.0-8.5)
[2016-10-05] MEDS: ENOXAPARIN 40 MG/0.4 ML PFS SQ SCH (16:59)
[2016-10-05] MEDS: AMITRIPTYLINE 50 MG TAB PO SCH (19:53)
[2016-10-05] MEDS ORDERED: Magnesium Sulfate 2 gm/D5W 2 GM/50 ML RTU IV ONE (20:04)
[2016-10-06] MEDS: ISOSORBIDE MONONITRATE 60 MG TAB PO SCH (05:15)
[2016-10-06] MEDS: REGULAR INSULIN 100 UNITS/ML - 3 ML VIAL SQ SCH ×2 (06:18→17:13)
[2016-10-06 07:15] LABS: BLOOD UREA NITROGEN 26 MG/DL (9-20); CALCIUM 8.6 MG/DL (8.4-10.2); CALCULATED OSMOLALITY 288 MOs/Kg (270-290); CHLORIDE 112 mEq/L (98-107); GLUCOSE 87 MG/DL (70-99); SODIUM LEVEL 148 mEq/L (137-146)
[2016-10-06] MEDS: AMLODIPINE 10 MG TAB PO SCH (08:09)
[2016-10-06] MEDS: PRAVASTATIN 40 MG TABLET PO SCH (08:10)
[2016-10-06] MEDS: RANOLAZINE 500 MG EXT RELEASE TAB PO SCH ×2 (08:10→20:12)
[2016-10-06] MEDS: CLOPIDOGREL 75 MG TAB PO SCH (08:10)
[2016-10-06] MEDS: NS 1,000 ML IV SCH ×3 (08:11→20:13)
[2016-10-06] MEDS: BUDESONIDE 0.5 MG NEB NEB SCH ×2 (08:16→20:47)
[2016-10-06] MEDS: MAGNESIUM OXIDE 400 MG TAB PO SCH ×2 (12:51→17:11)
[2016-10-06] MEDS: POTASSIUM CHLORIDE 20 MEQ TAB PO SCH (12:51)
[2016-10-06] MEDS ORDERED: ENOXAPARIN 80 MG/0.8 ML PFS SQ SCH (18:00)
--- NOTE | 2016-10-06 18:47 | GENMEDPROG ---
Chief Complaint: ARF, M HTN, Currently: Reports: RODRIGUEZ, Sputum, Constipation, Reflux Sx DVT Prophylaxis: Yes - Physical Examination Vital Signs and I&O: Last Vital Signs Temp 98.4 F 10/06/16 05:10 Pulse 85 10/06/16 17:09 Resp 20 10/06/16 05:10 BP 150/84 10/06/16 17:09 Pulse Ox 96 10/06/16 05:10 Oxygen Pulse Oxygen Saturation 96 O2 Device Room Air Oxygen Flow Rate Fraction of Inspired Oxygen ( FIO2) Intake & Output 10/03/16 10/04/16 10/05/16 10/06/16 23:59 23:59 23:59 23:59 Intake Total 2166 3217 2967 3003 Output Total 4150 5200 7300 2250 Balance -1983 -3 753 Patient's weight 131.57 kg 131.712 kg 129.756 kg 129.472 kg General: Alert, Oriented x3, Cooperative, No acute distress HEENT: Normal, PERRLA, EOMI, Anicteric Sclera Neck: Non-tender, Normal inspection, Limited range of motion Lymphatics: Normal (No cervical lymphadenopathy. No supraclavicular lymphadenopathy.) Respiratory: Normal - CTA (Clear to auscultation bilaterally. No wheezing, rales , rhonchi. Chest wall movements are symmetric. No use of accessory muscles to breathe.), Diminished, Rhonchi Cardiovascular: Regular rate, Normal S1, Normal S2 GI: Normal bowel sounds, Soft, Non tender, No hepatospenomegaly, No masses, Obese Extremities/Musculoskeletal: Edema, Cyanosis, DJD Skin: Warm,Dry and Intact, No rashes, No significant lesion Neurological: Normal speech, Cranial nerves 3-12 NL Psych/Mental Status: Anxious Lab/DI/Studies Reviewed: Laboratory Tests 10/06/16 10/06/16 05:55 06:02 Sodium 148 H Potassium 3.6 Chloride 112 H Carbon Dioxide 24 Anion Gap 16 BUN 26 H Creatinine 2.20 H Estimated GFR (MDRD) 31 L Glucose 87 POC Capillary Glucose 90 Calculated Osmolality 288 Calcium 8.6 Magnesium 1.70 - Assessment (1) Acute renal failure Acute N17.9 - ACUTE KIDNEY FAILURE, UNSPECIFIED Qualifiers: Acute renal failure type: with acute tubular necrosis Qualified Code(s): N17.0 - Acute kidney failure with tubular necrosis Comment/Plan: Continue monitoring with daily BMP. Avoid any nephrotoxins. Discussed with Dr. Carrington, who recommended leaving Zarate in and discharge patient with leg bag. Follow-up with him in his office in 1-2 weeks. (2) Urinary retention due to benign prostatic hyperplasia Acute N28.89 - OTHER SPECIFIED DISORDERS OF KIDNEY AND URETER; R33.8 - OTHER RETENTION OF URINE Comment/Plan: Continue zarate catheter; Discussed with Dr. Carrington, who recommended leaving Zarate in and discharge patient with leg bag. Follow-up with him in his office in 1-2 weeks. Begin Flomax and Proscar. (3) Hypertensive urgency, malignant Acute I16.0 - HYPERTENSIVE URGENCY Comment/Plan: BP still fluctuates but overall under much better control. Continue multiple agents (4) Hypomagnesemia Acute E83.42 - HYPOMAGNESEMIA Comment/Plan: replace losses and recheck level (5) Coronary artery disease Acute I25.10 - ATHSCL HEART DISEASE OF [place] CORONARY ARTERY W/O ANG PCTRS Qualifiers: Coronary Disease-Associated Artery/Lesion type: [place] artery [place] vs. transplanted heart: [place] heart Associated angina: without angina Qualified Code(s): I25.10 - Atherosclerotic heart disease of [place] coronary artery without angina pectoris Comment/Plan: Stable on meds (6) Non-insulin dependent type 2 diabetes mellitus Chronic E11.9 - TYPE 2 DIABETES MELLITUS WITHOUT COMPLICATIONS Comment/Plan : Sliding scale insulin therapy is ordered. AZS6j=6.8 and microalbumin=6.3. Off oral agents due to renal failure. Has not needed any insulin but about 1-2 times in 3 days. Refused then.
[2016-10-06] MEDS: TAMSULOSIN HCL 0.4 MG CAP PO SCH (20:12)
[2016-10-06] MEDS: AMITRIPTYLINE 50 MG TAB PO SCH (20:12)
[2016-10-07] MEDS: CLOTRIMAZOLE 1% CREAM 15 GM TOP SCH ×2 (00:37→09:24)
[2016-10-07] MEDS: OXYCODONE HCL 5 MG TABLET PO SCH ×3 (00:38→12:08)
[2016-10-07] MEDS ORDERED: CLOTRIMAZOLE 1% CREAM 15 GM TOP SCH (01:00)
[2016-10-07] MEDS: REGULAR INSULIN 100 UNITS/ML - 3 ML VIAL SQ SCH (05:52)
[2016-10-07] MEDS: ISOSORBIDE MONONITRATE 60 MG TAB PO SCH (05:54)
[2016-10-07] MEDS: NS 1,000 ML IV SCH ×2 (06:22→15:06)
[2016-10-07] MEDS: BUDESONIDE 0.5 MG NEB NEB SCH (07:42)
[2016-10-07] MEDS ORDERED: FINASTERIDE 5 MG TAB PO SCH (09:00)
[2016-10-07] MEDS: TAMSULOSIN HCL 0.4 MG CAP PO SCH (09:24)
[2016-10-07] MEDS: AMLODIPINE 10 MG TAB PO SCH (09:25)
[2016-10-07] MEDS: CLOPIDOGREL 75 MG TAB PO SCH (09:26)
[2016-10-07] MEDS: PRAVASTATIN 40 MG TABLET PO SCH (09:27)
[2016-10-07] MEDS: RANOLAZINE 500 MG EXT RELEASE TAB PO SCH (09:28)
--- NOTE | 2016-10-07 10:06 | PCM.DCS92 ---
- Final/Secondary Discharge Diagnosis (1) Acute renal failure Acute N17.9 - ACUTE KIDNEY FAILURE, UNSPECIFIED Present on Admission: Yes with acute tubular necrosis N17.0 - Acute kidney failure with tubular necrosis Comment: Continue monitoring with daily BMP. Avoid any nephrotoxins. Discussed with Dr. Carrington, who recommended leaving Zarate in and discharge patient with leg bag. Follow-up with him in his office in 1-2 weeks. (2) Urinary retention due to benign prostatic hyperplasia Acute N28.89 - OTHER SPECIFIED DISORDERS OF KIDNEY AND URETER; R33.8 - OTHER RETENTION OF URINE Present on Admission: Yes Comment: Continue zarate catheter; Discussed with Dr. Carrington, who recommended leaving Zarate in and discharge patient with leg bag. Follow-up with him in his office in 1-2 weeks. Begin Flomax and Proscar. (3) Hypertensive urgency, malignant Acute I16.0 - HYPERTENSIVE URGENCY Present on Admission: Yes Comment: BP still fluctuates but overall under much better control. Continue multiple agents (4) Hypomagnesemia Acute E83.42 - HYPOMAGNESEMIA Present on Admission: Yes Comment: replace losses and recheck level (5) Coronary artery disease Acute I25.10 - ATHSCL HEART DISEASE OF [place] CORONARY ARTERY W/O ANG PCTRS Present on Admission: Yes [place] artery [place] heart without angina I25.10 - Atherosclerotic heart disease of [place] coronary artery without angina pectoris Comment: Stable on meds (6) Non-insulin dependent type 2 diabetes mellitus Chronic E11.9 - TYPE 2 DIABETES MELLITUS WITHOUT COMPLICATIONS Present on Admission: Yes Comment: Sliding scale insulin therapy is ordered. JKI0y=0.8 and microalbumin= 6.3. Off oral agents due to renal failure. Has not needed any insulin but about 1-2 times in 3 days. Refused then. Discharge Disposition: Discharge w/ Home Health Discharge Condition: Improved Cognitive Discharge Status: Unimpaired Fuctional Discharge Status: Cane Assistance, Walker Assistance, Ambulatory Dysfunction Physician Follow up/Referrals: Sriram Gould II, MD [Primary Care Provider] - One Week Pedro Luis Carrington MD [Staff Physician] - One Week Home Medications / New Prescriptions: New Clotrimazole [Lotrimin] 15 gm TOP BID #1 tube Finasteride [Proscar] 5 mg PO DAILY #30 tablet HydrALAZINE (Cardiovascular) [Apresoline] 75 mg PO QID #100 tablet Isosorbide Mononitrate [Imdur] 60 mg PO 0600 #30 tablet Magnesium Oxide [Mag-Ox] 400 mg PO BIDLS #60 tablet Oxycodone Immediate Release [Oxycodone Immediate Release (OxyIR)] 5 mg PO Q6 #60 tablet Senna Concentrate [Senokot] 1 tab PO BID PRN #60 tablet PRN Reason: Constipation - First Option Tamsulosin HCl [Flomax] 0.4 mg PO BID #60 capsule Continue Amitriptyline HCl [Elavil] 300 mg PO HS Pravastatin Sodium 40 mg PO DAILY Clopidogrel Bisulfate [Plavix] 75 mg PO DAILY Calcium Carb/Mag Ox/Zinc Sulf [Agbylcq-Sjmybarjf-Ccua Tablet] 1 tab PO DAILY Ranolazine [Ranexa] 500 mg PO BID Fluticasone/Vilanterol [Breo Ellipta 200-25 Mcg INH] 1 each INH BID Potassium Chloride [Klor-Con M10] 10 meq PO DAILY Cephalexin 500 mg PO .BID X 7D Nitroglycerin Sublingual Tab [NTG (NitroStat Sublingual Tab)] 0.4 mg SL Q5MX3 PRN PRN Reason: Chest Pain Or Discomfort Changed Amlodipine [Norvasc] 10 mg PO DAILY #30 tab CloNIDine (Antihypertensive) [Catapres] 0.3 mg PO TID #100 tablet Discontinued Isosorbide Mononitrate [Isosorbide Mononitrate ER] 30 mg PO DAILY Glimepiride [Amaryl] 2 mg PO DAILY Discharge Home Medication List Amitriptyline HCl [Elavil] 300 mg PO HS 11/12/12 [History Confirmed 10/01/16 Last Taken 09/30/16] Pravastatin Sodium 40 mg PO DAILY 11/12/12 [History Confirmed 10/01/16 Last Taken 09/30/16] Clopidogrel Bisulfate [Plavix] 75 mg PO DAILY 09/28/13 [History Confirmed Last Taken 09/30/16] Calcium Carb/Mag Ox/Zinc Sulf [Hnrsiuz-Wjgnynmez-Khpw Tablet] 1 tab PO DAILY 07/22 [History Confirmed 10/01/16 Last Taken 09/30/16] Fluticasone/Vilanterol [Breo Ellipta 200-25 Mcg INH] 1 each INH BID 02/15/16 [ History Confirmed 10/01/16 Last Taken 09/30/16] Ranolazine [Ranexa] 500 mg PO BID 02/15/16 [History Confirmed 10/01/16 Last Taken 09/30/16] Cephalexin 500 mg PO .BID X 7D 10/01/16 [History Confirmed 10/01/16 Last Taken Unknown] Nitroglycerin Sublingual Tab [NTG (NitroStat Sublingual Tab)] 0.4 mg SL Q5MX3 PRN 10/01/16 [History Confirmed 10/01/16 Last Taken Unknown] Potassium Chloride [Klor-Con M10] 10 meq PO DAILY 10/01/16 [History Confirmed Last Taken Unknown] Amlodipine [Norvasc] 10 mg PO DAILY #30 tab 10/07/16 [Rx Last Taken Unknown] CloNIDine (Antihypertensive) [Catapres] 0.3 mg PO TID #100 tablet 10/07/16 [Rx Last Taken Unknown] Clotrimazole [Lotrimin] 15 gm TOP BID #1 tube 10/07/16 [Rx Last Taken Unknown] Finasteride [Proscar] 5 mg PO DAILY #30 tablet 10/07/16 [Rx Last Taken Unknown] HydrALAZINE (Cardiovascular) [Apresoline] 75 mg PO QID #100 tablet 10/07/16 [Rx Last Taken Unknown] Isosorbide Mononitrate [Imdur] 60 mg PO 0600 #30 tablet 10/07/16 [Rx Last Taken Unknown] Magnesium Oxide [Mag-Ox] 400 mg PO BIDLS #60 tablet 10/07/16 [Rx Last Taken Unknown] Oxycodone Immediate Release [Oxycodone Immediate Release (OxyIR)] 5 mg PO Q6 # 60 tablet 10/07/16 [Rx Last Taken Unknown] Senna Concentrate [Senokot] 1 tab PO BID PRN #60 tablet 10/07/16 [Rx Last Taken Unknown] Tamsulosin HCl [Flomax] 0.4 mg PO BID #60 capsule 10/07/16 [Rx Last Taken Unknown] O2 Device: Room Air Diet at Discharge: Heart Healthy, Low Salt, Diabetic, 2200 Calorie Activity: As Tolerated Call Office For: Worsening Symptoms, Fever over 101 F, Pain Uncontrolled By Meds , Other (See Details) - DC Summary Notes Home Health Need / Longterm Services:: Due to the presence of Diabetic Changes and/or risk of deterioration a skilled Assessment and observation of endocrine status is required for this patient. This assessment to include but not limited to: teaching, training of disease process and symptom management (diet, infection control), safety, S/S of hyper/ hypoglycemia, medication, medication management, and recognizing changes/ decline in status. Blood sugar monitoring signs and symptoms to report to physician blanking machine operator. Patient requires 24/7 supervision and is only able to leave the home for doctor appointments and only when pot operator is able to assist him. Patient is at an increased risk of falls because of inability to safely navigate stairs, uneven sidewalk , and curbs. Patient lives alone. Transferring:[independent but with device] Toileting hygiene as follows: [Patient had urinary retention and is being discharged with Zarate catheter. Review Catheter care with patient: cleaning, emptying, clamping. ] Ambulation locomotion:[ ambulates with cane or rolling walker] Hospital Course Note:: Discharge summary on patient named DAWIT PLAZA admitted to [facility] on 10/01/16 by Kalpesh Poole MD. Date of discharge is [10/07/16]. Patient is an interesting 60-year-old white male who lives alone and was in his brother's truck this afternoon when he had a seizure lasting 3-5 minutes. His brother tells me he has had seizures since 1991. He was in Dr. Gould's office today and was told to stop his Lasix and lisinopril due to an elevation in his creatinine. Upon arrival emergency room after the seizure he was found have an extremely elevated blood pressure in the 230s systolicly. Also he was noted to have a creatinine 4.1 (his baseline is 1.3). As far as a seizure goes the last 1 he had was about a year ago. Dr. Poole was called by Dr. Taylor to evaluate him, given these multiple issues, he decided to admit him to the hospital to better control his blood pressure and monitor his renal function. He also has a history of coronary artery disease, status post stenting, and sees Dr. Sousa for this. The patient was started on IV fluid hydration and all nephrotoxic medications were discontinued. Several adjustments were made to his medical regimen to control his hypertension. He had several medicines that had been called to the pharmacy by Dr. Gould, but the patient had not yet picked them up or started taking them. We instituted these and adjusted the doses as needed. He also had urinary retention with hydronephrosis. A Zarate catheter was inserted and he was started on Flomax and Proscar. A call was made to Dr. Carrington, his urologist, who recommended leaving the catheter in for two weeks to allow the medication ample time to work, before a repeat voiding trial. The patient's creatinine peaked at 5.2, but has come down now to 2.2 with an eGFR of 31. He is feeling better and his BP is better controlled at 138/71. We are avoiding the use of NOEMI/ARB's at this time and also as few diuretics as possible. He will be discharged home with home health follow-up and is to see both Dr. Sriram Gould and Dr. Carrington in 1 week. - Physical Exam Vital Signs: Last Vital Signs Temp 98.3 F 10/07/16 08:49 Pulse 106 10/07/16 08:49 Resp 18 10/07/16 08:49 BP 138/71 10/07/16 08:49 Pulse Ox 91 10/07/16 09:20 Oxygen Pulse Oxygen Saturation 91 O2 Device Room Air Oxygen Flow Rate Fraction of Inspired Oxygen ( FIO2) Constitutional: Alert (Awake, Fully oriented. Normal and appropriate affect.Well appearing. Well nourished.), No apparent distress Oriented to: Time, Person, Place - HEENT Head: Normal (normocephalic, atraumatic.), Other (No cervical lymphadenopathy. No supraclavicular lymphadenopathy. Neck: No palpable mass, supple , trachea midline.) Eye: Normal (pupils equal, reactive to light, and round; EOMI, Sclera white) Oropharynx: Normal (Pharynx: Moist without exudate,Gums-no swelling, No oropharyngeal lesions or erythema, Mucous membranes are dry.) Tympanic Membrane: Normal (no discharge) ENT EAC: Normal (No oropharyngeal lesions or erythema. Mucous membranes are dry. ) TMJ: Normal Nose: No Symptoms Reported (septum midline, Nares patent, without discharge or bleeding.) - Respiratory/Cardiovascular Respiratory: Normal - CTA (Clear to auscultation bilaterally. No wheezing, rales , rhonchi. Chest wall movements are symmetric. No use of accessory muscles to breathe.), Diminished, Rhonchi - GI Auscultation: Normal (normal active sounds) Palpation: Normal (Soft,non distended,nontender. No hepatosplenomegaly.) Tenderness: Non tender (No rebound or guarding) Plaza's Sign: Negative - Musculoskeletal Back: Normal (Non-Tender) Extremities: Normal (Normal tone, DP pulses 2+ bilaterally, No cyanosis or edema bilaterally, FROM bilaterally.) - Integumentary Lymphatics: Normal (No cervical lymphadenopathy. No supraclavicular lymphadenopathy.) - Neurologic Memory Impaired: Normal Cerebellar: Normal (Babinski: toes downgoing bilaterally. Intact Finger to nose. Sensory grossly intact to light touch. Intact rapid alternating movements bilaterally. No pronator drift.) Mood Description: Normal (Fully oriented. Normal and appropriate affect.) Thought: Coherent Perception: Normal (Normal and appropriate affect.)
[2016-10-07 11:08] LABS: BLOOD UREA NITROGEN 27 MG/DL (9-20); CALCIUM 8.2 MG/DL (8.4-10.2); CALCULATED OSMOLALITY 286 MOs/Kg (270-290); CHLORIDE 111 mEq/L (98-107); GLUCOSE 103 mg/dL (70-99); SODIUM LEVEL 146 mEq/L (137-146)
[2016-10-07 11:31] VITALS: TEMP 97.8
[2016-10-07] MEDS: POTASSIUM CHLORIDE 20 MEQ TAB PO SCH (12:04)
[2016-10-07] MEDS: MAGNESIUM OXIDE 400 MG TAB PO SCH (12:05)
[2016-10-07 14:09] VITALS: BP 129/61; PULSE 81
[2016-10-07 18:40] LABS: GAMMA GLOBULIN, UR 0 % (.); M-SPIKE %, UR Not Observed % (Not Observed)
== END 2016-10-07 15:36 | disposition home health service (06) | DRG 684 ==
LOC: ED 17:13 → MPS3 22:17 → ED 23:05
PROVIDERS: ADMIT Internal Medicine; ATTEND Family Medicine
DX: N17.0 Acute kidney failure with tubular necrosis (principal); R56.9 Unspecified convulsions; E83.42 Hypomagnesemia; E11.9 Type 2 diabetes mellitus without complications; I10 Essential (primary) hypertension; D64.9 Anemia, unspecified; N40.1 Benign prostatic hyperplasia with lower urinary tract symptoms; R33.8 Other retention of urine; I16.0 Hypertensive urgency; I25.10 Atherosclerotic heart disease of native coronary artery without angina pectoris; I25.2 Old myocardial infarction; Z98.61 Coronary angioplasty status; E78.00 Pure hypercholesterolemia, unspecified; J45.909 Unspecified asthma, uncomplicated; Z86.73 Personal history of transient ischemic attack (TIA), and cerebral infarction without residual deficits; F32.9 Major depressive disorder, single episode, unspecified; Z79.899 Other long term (current) drug therapy; E86.0 Dehydration; E87.6 Hypokalemia
CPT/HCPCS: 51798; 70450; 76770; 80048; 80053; 81001; 82043; 82962; 83036; 83735; 84165; 85014; 85018; 85025; 93005; 94640; 96372; 99284; J0360; J1650; J2405; J3475; J3490